=== PATIENT | male | born 1970 | race Caucasian/White ===

== ENCOUNTER 2025-07-17 00:40 | Day surgery (SDC) | payer BC, SELFPAY ==
[2025-07-16 14:36] VITALS: BMI 32.8
--- OUTSIDE RECORDS SUMMARY | 2025-07-17 00:43 | XMS_ITS | Clinical Summary ---
Author Organization [facility] Address [address] [place] [address] Care Team Providers Care Scrummaster Name Role Phone Unavailable Primary Care Provider Unavailabl e Source Comments [facility],non-owned Affiliates and Associated Physician Practices is amultiple site organization consisting of ambulatory clinics and hospital sitesin [place], [place], [place] and [place]. This disclosure is being madepursuant to the Care Everywhere program and may not contain all information available regarding this patient. Last updated 18.[facility] Allergies No known active allergies Medications * Be aware that medications may not be up to date on this document. Alwaysverify current medications with the patient. albuterol (5 MG/ML) 0.5% 2.5 mg, ipratropium 0.02 % 0.5 mg Active triamcinolone acetonide (KENALOG) 0.1 % cream Apply to affected area 2 times daily 30 g 0 Active predniSONE (DELTASONE) 20 MG tablet Days 1-5 take 3 tablets (60mg) daily, Days 6-10 take 2 tablets (40mg) daily, and Days 11-15 take 1 tablet (20mg) daily 30 tablet 0 Active Social History Tobacco Use Types Packs/Day Years Used Date Smoking Tobacco: Never Smokeless Tobacco: Never Sex and Gender Information Value Date Recorded Sex Assigned at Not on file Legal Sex Male 9:02 AM CDT Gender Identity Not on file Sexual Orientation Not on file Last Filed Vital Signs Vital Sign Reading Time Taken Comments Blood Pressure 132/84 04/18/2018 9:23 AM CDT Pulse 71 03/18/2020 3:45 PM CDT Temperature 36.7 C (98 F) 03/18/2020 3:45 PM CDT Respiratory Rate 16 03/18/2020 3:45 PM CDT Oxygen Saturation 95% 03/18/2020 3:45 PM CDT Inhaled Oxygen Concentration - - Weight 97.5 kg (215 lb) 03/18/2020 3:45 PM CDT Height 175.3 cm (5' 9) 03/18/2020 3:45 PM CDT Body Mass Index 31.75 03/18/2020 3:45 PM CDT Plan of Treatment Health Maintenance Due Date Last Done Comments COLOGUARD (AGES 45-75) - COL ON CA SCREENING 1971 COLON MONITORING 1971 COLONOSCOPY - COLON CA SCREENING 1971 CT COLONOGRAPHY - COLON CA SCREENING 1971 Colorectal Cancer Screening 1971 FIT - COLON CA SCREENING 1971 FLEX SIG - COLON CA SCREENING 1971 LIPID TESTING 1971 HIV SCREENING 1986 HEPATITIS C SCREENING 03/26/1989 DTAP/TDAP/TD VACCINES (1 - Tdap) 1990 HEPATITIS B VACCINE (1 of 3 - 19+ 3-dose series) 1990 SCREENING FOR DIABETES 03/18/2020 PNEUMOCOCCAL VACCINE 50+ (1 of 1 - PCV) 2021 ZOSTER VACCINE (1 of 2) 2021 DEPRESSION SCREENING 09/06/2024 COVID-19 VACCINE (1 - 2023-2 5 season) 2025 INFLUENZA VACCINE (#1) 2025 HIB VACCINE Aged Out No longer eligi ble based on patient's age to complete this topic HPV VACCINE Aged Out No longer eligi ble based on patient's age to complete this topic MENINGOCOCCAL (Group B) VACC INE SHARED DECISION-MAKING Aged Out No longer eligibl e based on patient's age to complete this topic MENINGOCOCCAL GROUPS A/C/Y/W VACCINE Aged Out No longer eligible b ased on patient's age to complete this topic Insurance [facility] Address: [facility] [id number] [place] [address]
[2025-07-17 09:43] VITALS: BP 116/82; PULSE 58; RESP 16; TEMP 36.1; O2SAT 99; BMI 33.7
[2025-07-17] MEDS: LACTATED RINGERS 1,000 ML 150 ML IV CONT (09:58)
--- NOTE | 2025-07-17 10:18 | P.PNAN_ITS ---
Anes - Initial Pre Proc Eval Procedure: Operation Date: 07/17/25 11:00 Proposed Procedures p Esophagogastroduodenoscopy - Ajit Rivas MD Date/Time: 07/17/25 10:18 Surgeon: Ajit Rivas MD Pre Op Diagnosis: Other dysphagia Patient Data Age: 55 Gender: M Height: 1.77 m Weight: 105 kg Last Vital Signs Temp 36.1 C L 07/17/25 09:43 Pulse 58 L 07/17/25 09:43 Resp 16 07/17/25 09:43 BP 116/82 07/17/25 09:43 Pulse Ox 99 07/17/25 09:43 O2 Del Method Room Air 07/17/25 09:43 Allergies Allergy/AdvReac Type Severity Reaction Status Date / Time No Known Allergies Allergy Verified 07/17/25 09:42 Home Medications ?Medication ?Instructions ?Recorded ?Confirmed ?Type No Home Medications 07/16/25 07/16/25 H istory Patient hx anesthesia problems: none Family hx anesthesia problems: none Results Review: All pre-operative results and documents have been reviewed as part of the pre-operative evaluation. [facility] Past Medical History Medical History (Updated 07/17/25 @ 10:19 by Starr Harp CRNA) Obese Dysphagia Asthma Social History Social History Smoking status: Never smoker Substance use type: does not use Living arrangements: alone Anes - Eval Final PreProcedure Day of Procedure 07/17/25 10:18 Patient weight: obese Heart: regular rate and rhythm Lungs: clear to auscultation Airway: Mallampati scale class II Neurological: alert and oriented Last oral intake: >/= 8 hours ASA classification: III Emergent: yes Anesthetic plan: proceed Anesthesia type and monitoring: general Results Review: All pre-operative results and documents have been reviewed as part of the pre- operative evaluation. Informed Consent: The patient's anesthetic plan and its attendant risks and benefits were discussed with the patient/family/POA. Questions were solicited and answers provided to the satisfaction of the patient/family/POA.
--- NOTE | 2025-07-17 10:57 | P.HP_ITS ---
History of Present Illness History of Present Illness Consent: Risks, benefits, and alternatives have been discussed and questions answered. Patient agrees to proceed with procedure. Chief complaint: Other dysphagia Narrative: Claude Fragoso is a 55 year old male with dysphagia, never had egd, not taking ppi Review of Systems Review of Systems: All systems reviewed & are unremarkable except as noted in HPI and below PMFSH Past Medical History Medical History (Updated 07/17/25 @ 10:19 by Starr Harp [employer]) Obese Dysphagia Asthma Social History Social History Smoking status: Never smoker Substance use type: does not use Living arrangements: alone Meds Home Medications and Allergies Home Medications ?Medication ?Instructions ?Recorded ?Confirmed ?Type No Home Medications 07/16/25 07/16/25 H istory Allergies Allergy/AdvReac Type Severity Reaction Status Date / Time No Known Allergies Allergy Verified 07/17/25 09:42 Vital Signs Vital Signs - 24 hr 07/17/25 09:43 Temperature 96.9 F L Pulse Rate 58 L Respiratory Rate 16 Blood Pressure 116/82 Pulse Oximetry 99 Oxygen Delivery Room Air Exam Const: General: comfortable and no acute distress HENMT: Face/Nose/Sinus: Normal nares present Eyes: General: appearance normal, both eyes and all related structures Neck: Neck: no JVD Resp: Auscultation: clear to auscultation bilaterally Cardio: Rate: regular rate Rhythm: regular rhythm GI: Inspection: non-distended GI Palp: Yes Soft to palpation Skin: General skin exam: normal color Extrem: General: normal to inspection Psych: Mental Status: mental status grossly normal Assessment and Plan Assessment and plan (1) Dysphagia: Code(s): R13.10 - Dysphagia, unspecified Status: Acute Assessment and Plan: egd
--- NOTE | 2025-07-17 11:07 | S_PTH ---
PATIENT: Claude Fragoso LOC: [facility]#:[id number] AGE/SX: 55/M ROOM: RE07/17/[address]: Ajit Rivas MD : 1970 BED: DIS: 07/17/2025 SPEC #: [id number] RECD: 07/17/25 11:30 STATUS: ADILIA REQ #: [id number] KWABENA: 07/17/25 11:[address]: Ajit Rivas DEPT: [facility] Surgical RECD BY: Matt Gomez ENTERED: 07/17/25 11:31 SP TYPE: Surgical OTHR DR: Amol Santos, Tissues: A - Esophageal Biopsy B - Gastric Biopsy Procedures: Hematoxylin and Eosin Stain Gross and Microscopic Level 4
[2025-07-17 11:14] VITALS: BP 108/68; PULSE 74; RESP 19; O2SAT 98
[2025-07-17 11:24] VITALS: BP 100/61; PULSE 68; RESP 20; O2SAT 96
[2025-07-17 11:34] VITALS: BP 104/69; PULSE 66; RESP 24; O2SAT 97
== END 2025-07-17 11:41 | disposition home or self-care (01) ==
PROVIDERS: PCP Internal Medicine; Referring Provider Internal Medicine; Visit Provider Internal Medicine Gastroenterology
PROC: 0DJ08ZZ Inspection of Upper Intestinal Tract, Via Natural or Artificial Opening Endoscopic (ICD-10-PCS; CPT 43239; principal; 2025-07-17 11:00)
DX: K21.00 Gastro-esophageal reflux disease with esophagitis, without bleeding (principal); K22.2 Esophageal obstruction; K44.9 Diaphragmatic hernia without obstruction or gangrene; J45.909 Unspecified asthma, uncomplicated; E66.9 Obesity, unspecified; Z68.33 Body mass index [BMI] 33.0-33.9, adult
CPT/HCPCS: 43239; 43249; 88305; C1726; J2003; J2704; J7120